=== PATIENT | female | born 1980 | race Caucasian/White ===

== ENCOUNTER 2016-11-11 13:21 | Emergency (ER) | payer SELFPAY ==
[~2016-11-11] VITALS: Ht 170.2 cm; Wt 63.8 kg
[2016-11-11] MEDS ORDERED: MOTRIN600 MG PO (14:51)
[2016-11-11] MEDS ORDERED: ULTRAM50 MG PO (14:51)
[2016-11-11] MEDS ORDERED: AMOXICILLIN875 MG PO (14:51)
[2016-11-11 15:25] VITALS: BP 119/91
== END 2016-11-11 15:25 | disposition home or self-care (01) ==
LOC: EME 13:21
DX: K08.89 Other specified disorders of teeth and supporting structures (principal)
CPT/HCPCS: 99281; 99283

== ENCOUNTER 2017-04-10 16:34 | Emergency (ER) | payer OTHER ==
[~2017-04-10] VITALS: Ht 170.2 cm; Wt 61.3 kg
[~2017-04-10 16:34] MED LIST: AMOXICILLIN875 MG PO; MOTRIN600 MG PO; ULTRAM50 MG PO
[2017-04-10] MEDS ORDERED: FLEXERIL10 MG PO (18:22)
[2017-04-10] MEDS ORDERED: NAPROSYN500 MG PO (18:22)
[2017-04-10 18:34] VITALS: BP 135/90
== END 2017-04-10 18:35 | disposition home or self-care (01) ==
LOC: EME 16:34
DX: S20.212A Contusion of left front wall of thorax, initial encounter (principal); V49.40XA Driver injured in collision with unspecified motor vehicles in traffic accident, initial encounter; F17.210 Nicotine dependence, cigarettes, uncomplicated
CPT/HCPCS: 99281; 99283

== ENCOUNTER 2017-06-02 10:58 | Emergency (ER) | payer SELFPAY ==
[~2017-06-02] VITALS: Ht 170.2 cm; Wt 60.2 kg
[~2017-06-02 10:58] MED LIST changes: +FLEXERIL10 MG PO; +NAPROSYN500 MG PO
[2017-06-02] MEDS ORDERED: NAPROSYN500 MG PO (12:10)
[2017-06-02] MEDS ORDERED: FLEXERIL10 MG PO (12:10)
[2017-06-02 12:15] VITALS: BP 105/74
== END 2017-06-02 12:16 | disposition home or self-care (01) ==
LOC: EME 10:58
DX: S86.912A Strain of unspecified muscle(s) and tendon(s) at lower leg level, left leg, initial encounter (principal); X58.XXXA Exposure to other specified factors, initial encounter; Y99.0 Civilian activity done for income or pay; F17.200 Nicotine dependence, unspecified, uncomplicated
CPT/HCPCS: 73564; 99281; 99284

== ENCOUNTER 2017-09-24 09:06 | Emergency (ER) | payer OTHER ==
[~2017-09-24] VITALS: Ht 170.2 cm; Wt 63.5 kg
[2017-09-24 12:13] LABS: APPEARANCE SL.HAZY ((CLEAR)); BILIRUBIN NEGATIVE; BLOOD SMALL; COLOR YELLOW ((YELLOW)); GLUCOSE (STRIP) NEGATIVE; KETONES NEGATIVE; LEUKOCYTES NEGATIVE; NITRITE POSITIVE; PROTEIN (STRIP) NEGATIVE; SPECIFIC GRAVITY 1.023 (1.000-1.030); UROBILINOGEN 0.2 MG/DL (0.2-1.0)
[2017-09-24 12:23] LABS: BACTERIA 1+ /HPF; EPITHELIAL CELLS RARE /HPF; MUCUS TRACE /LPF; RED BLOOD CELLS 0-5 /HPF (0-5); WHITE BLOOD CELLS 0-5 /HPF (0-5)
[2017-09-24] MEDS ORDERED: FLEXERIL5 MG PO (13:15)
[2017-09-24] MEDS ORDERED: MOTRIN600 MG PO (13:15)
[2017-09-24 13:25] VITALS: BP 104/68
== END 2017-09-24 13:26 | disposition home or self-care (01) ==
LOC: EME 09:06
PROVIDERS: Physician Assistant
DX: S29.012A Strain of muscle and tendon of back wall of thorax, initial encounter (principal); J40 Bronchitis, not specified as acute or chronic; F17.200 Nicotine dependence, unspecified, uncomplicated; Z88.5 Allergy status to narcotic agent
CPT/HCPCS: 71046; 81003; 99281; 99284